=== PATIENT | male | born 1950 | race Caucasian/White ===

== ENCOUNTER 2022-11-26 13:10 | Inpatient (IN) | payer MEDICARE, OTHER ==
[2022-11-26] VITALS (23 sets, daily range): BP systolic 58–132; BP diastolic 21–79
[~2022-11-26] VITALS: Ht 175.3 cm; Wt 74.9 kg
[2022-11-26] MEDS ORDERED: SODIUM CHLORIDE 0.9% 1,000 ML IV ONE (13:30)
[2022-11-26] MEDS ORDERED: MIDAZOLAM HCL 2 MG/2 ML VIAL IV ONE (13:30)
[2022-11-26 13:31] LABS: EOSINOPHILS % 3.8 % (0.0-5.0); HEMATOCRIT. 28.9 % (42.0-52.0); HEMOGLOBIN. 9.9 g/dL (14.0-18.0); LYMPHOCYTES % 12.2 % (20.0-50.0); MEAN CORPUSCULAR HEMOGLOBIN 33.8 pg (28.0-32.0); MEAN CORPUSCULAR VOLUME 98.8 fL (80.0-94.0); MEAN PLATELET VOLUME 6.4 fl (7.4-10.4); MONOCYTES % 11.1 % (2.0-8.0); NEUTROPHILS % 71.9 % (40.0-76.0); PLATELET 219 x1000/uL (130-400); RED BLOOD CELL COUNT 2.93 mill/uL (4.7-6.1)
[2022-11-26 13:39] LABS: CHLORIDE 105 mEq/L (98-107)
[2022-11-26 13:44] LABS: INR 1.5; PARTIAL THROMBOPLASTIN TIME 32.5 sec (23.4-31.0)
[2022-11-26] MEDS ORDERED: AMIODARONE HCL 150 MG in DEXT 5% WATER 97 ML IV ONE (13:45)
[2022-11-26] MEDS ORDERED: AMIODARONE HCL 900 MG in DEXT 5% WATER 500 ML IV ONE (14:30)
[2022-11-26] MEDS ORDERED: POTASSIUM CHLORIDE INJ 40 MEQ in DEXT 5% WATER 250 ML IV ONE (14:45)
[2022-11-26] MEDS ORDERED: KCL 20MEQ/100ML X 2 FOR TOTAL KCL 40MEQ/200ML IV SCH (15:00)
[2022-11-26] MEDS ORDERED: POTASSIUM CHLORIDE 20MEQ TABLET SR PO ONE (15:45)
[2022-11-26] MEDS ORDERED: ACETAMINOPHEN 325MG TABLET PO PRN ×2 (16:45)
[2022-11-26] MEDS ORDERED: NITROGLYCERIN 0.4MG TABLET SL SL PRN (16:45)
[2022-11-26] MEDS ORDERED: CLONIDINE 0.1MG TABLET PO PRN (16:45)
[2022-11-26] MEDS ORDERED: IPRATROPIUM/ALBUTEROL 0.5-3(2.5)MG/3ML NEB NEB PRN (16:45)
[2022-11-26] MEDS ORDERED: MAGNESIUM/ALUMINUM HYDROXIDE/SIMETHICONE 30ML UDC PO PRN (16:45)
[2022-11-26] MEDS ORDERED: METOLAZONE 10MG TABLET PO NR (17:00)
[2022-11-26 17:37] LABS: ETHANOL BLOOD < 10 mg/dL; HDL CHOLESTEROL 75 mg/dL (40-59); LDL CHOLESTEROL 72 mg/dL (5-100); T4 FREE 1.06 ng/dL (0.76-1.46); TOTAL IRON BINDING CAPACITY 380 ug/dL (250-450)
[2022-11-26] MEDS ORDERED: AMIODARONE HCL 150 MG in DEXT 5% WATER 100 ML IV NR (17:45)
[2022-11-26 17:52] LABS: FOLIC ACID (FOLATE) SERUM >20 ng/mL ng/mL (>5.38); VITAMIN B12 SERUM 749 pg/mL (211-911)
[2022-11-26] MEDS ORDERED: WARFARIN SODIUM 5MG TABLET PO NR (18:00)
[2022-11-26] MEDS: ENOXAPARIN 80MG/0.8ML SYR SUBCUT SCH (18:24)
[2022-11-26] MEDS ORDERED: CLOP-31 PO (19:42)
[2022-11-26] MEDS ORDERED: SACU1TAB4 MT (19:42)
[2022-11-26] MEDS ORDERED: ASPI-1406 MT (19:42)
[2022-11-26] MEDS ORDERED: LEVO75TA PO (19:42)
[2022-11-26] MEDS ORDERED: WARF7.5T48 MT (19:42)
[2022-11-26] MEDS ORDERED: TAMS-11 MT (19:42)
[2022-11-26] MEDS ORDERED: CARV3.1242 MT (19:42)
[2022-11-26] MEDS ORDERED: ATOR20TA65 MT (19:42)
[2022-11-26] MEDS ORDERED: FURO-151 PO (19:42)
[2022-11-26 23:55] LABS: CREATINE KINASE MB FRACTION 2.7 ng/mL (0.5-3.6)
[2022-11-26] MEDS: FAMOTIDINE 20MG TABLET PO SCH (23:58)
[2022-11-27] VITALS (87 sets, daily range): BP systolic 86–122; BP diastolic 39–97
[2022-11-27] MEDS ORDERED: KCL 20MEQ/100ML X 2 FOR TOTAL KCL 40MEQ/200ML IV SCH (00:15)
[2022-11-27] MEDS ORDERED: MIRT-111 MT (01:51)
[2022-11-27] MEDS: TRAMADOL 50MG TABLET PO PRN ×3 (02:15→23:58)
[2022-11-27] MEDS: MIRTAZAPINE 15MG TABLET PO PRN ×2 (02:33→23:56)
[2022-11-27 05:50] LABS: BASOPHILS % 1.3 % (0.0-2.0); EOSINOPHILS % 4.9 % (0.0-5.0); HEMATOCRIT. 25.6 % (42.0-52.0); HEMOGLOBIN. 8.9 g/dL (14.0-18.0); LYMPHOCYTES % 22.1 % (20.0-50.0); MEAN CORPUSCULAR HEMOGLOBIN 33.9 pg (28.0-32.0); MEAN CORPUSCULAR VOLUME 97.9 fL (80.0-94.0); MEAN PLATELET VOLUME 6.9 fl (7.4-10.4); MONOCYTES % 12.7 % (2.0-8.0); PLATELET 177 x1000/uL (130-400); RED BLOOD CELL COUNT 2.62 mill/uL (4.7-6.1); RED CELL DISTRIBUTION WIDTH 14.8 % (11.6-14.6)
[2022-11-27 05:56] LABS: INR 1.8; PROTHROMBIN TIME 18.9 sec (9.6-11.0)
[2022-11-27 06:17] LABS: CHLORIDE 108 mEq/L (98-107)
[2022-11-27 06:30] LABS: CREATINE KINASE 86 IU/L (39-308); CREATINE KINASE MB FRACTION 2.7 ng/mL (0.5-3.6); PHOSPHORUS 3.2 mg/dL (2.5-4.9)
[2022-11-27] MEDS: ENOXAPARIN 80MG/0.8ML SYR SUBCUT SCH ×2 (07:21→18:16)
[2022-11-27] MEDS: AMIODARONE HCL 200 MG TABLET PO SCH ×2 (09:23→21:08)
[2022-11-27] MEDS ORDERED: METOPROLOL TARTRATE 5MG/5ML VIAL IV NR (09:30)
[2022-11-27] MEDS: ASPIRIN 81MG EC TABLET PO SCH (09:40)
[2022-11-27] MEDS: FAMOTIDINE 20MG TABLET PO SCH ×2 (09:40→21:08)
[2022-11-27] MEDS: METOPROLOL TARTRATE 25MG TABLET PO SCH ×2 (09:40→21:00)
[2022-11-27] MEDS: CLOPIDOGREL 75MG TABLET PO SCH (09:40)
[2022-11-27] MEDS: SPIRONOLACTONE 25MG TABLET PO SCH (09:40)
[2022-11-27] MEDS ORDERED: AMIODARONE HCL 150 MG in DEXT 5% WATER 100 ML IV SCH (10:00)
[2022-11-27] MEDS ORDERED: AMIODARONE HCL 900 MG in DEXT 5% WATER 482 ML IV PRN (10:00)
[2022-11-27] MEDS ORDERED: METOPROLOL TARTRATE 5MG/5ML VIAL IV PRN (10:15)
[2022-11-27] MEDS ORDERED: NALOXONE HCL 0.4MG/ML VIAL IV PRN (13:00)
[2022-11-27] MEDS ORDERED: ALBUTEROL (0.083%) 2.5MG/3ML NEB HHN PRN (14:30)
[2022-11-27] MEDS ORDERED: FUROSEMIDE 20MG/2ML VIAL IVP NR (16:45)
[2022-11-27] MEDS: ONDANSETRON HCL 4MG/2ML INJ IV PRN (21:07)
[2022-11-27] MEDS ORDERED: MAGNESIUM 1 G PREMIX 100 ML IV NR (22:30)
[2022-11-28] VITALS (76 sets, daily range): BP systolic 88–127; BP diastolic 42–98
[2022-11-28 05:45] LABS: BASOPHILS % 1.1 % (0.0-2.0); EOSINOPHILS % 1.4 % (0.0-5.0); HEMATOCRIT. 29.3 % (42.0-52.0); HEMOGLOBIN. 10.2 g/dL (14.0-18.0); LYMPHOCYTES % 17.7 % (20.0-50.0); MEAN CORPUSCULAR HEMOGLOBIN 34.3 pg (28.0-32.0); MEAN PLATELET VOLUME 7.1 fl (7.4-10.4); MONOCYTES % 15.5 % (2.0-8.0); NEUTROPHILS % 64.3 % (40.0-76.0); PLATELET 195 x1000/uL (130-400); RED BLOOD CELL COUNT 2.96 mill/uL (4.7-6.1); RED CELL DISTRIBUTION WIDTH 14.8 % (11.6-14.6)
[2022-11-28 05:50] LABS: CHLORIDE 102 mEq/L (98-107)
[2022-11-28 05:59] LABS: PHOSPHORUS 4.7 mg/dL (2.5-4.9)
[2022-11-28] MEDS: ENOXAPARIN 80MG/0.8ML SYR SUBCUT SCH (07:04)
[2022-11-28] MEDS: GUAIFENESIN 200MG/10ML SUGAR FREE UDC PO PRN (08:42)
[2022-11-28] MEDS: SPIRONOLACTONE 25MG TABLET PO SCH (09:51)
[2022-11-28] MEDS: FAMOTIDINE 20MG TABLET PO SCH ×2 (09:51→20:49)
[2022-11-28] MEDS: METOPROLOL TARTRATE 25MG TABLET PO SCH ×2 (09:51→21:37)
[2022-11-28] MEDS: CLOPIDOGREL 75MG TABLET PO SCH (09:53)
[2022-11-28] MEDS: ASPIRIN 81MG EC TABLET PO SCH (09:53)
[2022-11-28] MEDS: AMIODARONE HCL 200 MG TABLET PO SCH ×2 (14:05→17:41)
[2022-11-28] MEDS: ONDANSETRON HCL 4MG/2ML INJ IV PRN (14:57)
[2022-11-28] MEDS: TRAMADOL 50MG TABLET PO PRN (17:02)
[2022-11-29] VITALS (7 sets, daily range): BP systolic 90–123; BP diastolic 53–69
[2022-11-29] MEDS ORDERED: ALBUTEROL (0.083%) 2.5MG/3ML NEB HHN PRN
[2022-11-29] MEDS ORDERED: ALBUTEROL (0.083%) 2.5MG/3ML NEB HHN SCH
[2022-11-29] MEDS: GUAIFENESIN 200MG/10ML SUGAR FREE UDC PO PRN (03:35)
[2022-11-29] MEDS: ENOXAPARIN 80MG/0.8ML SYR SUBCUT SCH (05:53)
[2022-11-29 06:42] LABS: INR 2.6; PROTHROMBIN TIME 26.3 sec (9.6-11.0)
[2022-11-29] MEDS: ASPIRIN 81MG EC TABLET PO SCH (08:07)
[2022-11-29] MEDS: FAMOTIDINE 20MG TABLET PO SCH ×2 (08:07→21:56)
[2022-11-29] MEDS: CLOPIDOGREL 75MG TABLET PO SCH (08:08)
[2022-11-29] MEDS: AMIODARONE HCL 200 MG TABLET PO SCH ×3 (08:15→17:20)
[2022-11-29] MEDS: METOPROLOL TARTRATE 25MG TABLET PO SCH ×2 (09:00→21:00)
[2022-11-29] MEDS: LEVOTHYROXINE SODIUM 75MCG TABLET PO SCH (11:37)
[2022-11-29] MEDS: SPIRONOLACTONE 25MG TABLET PO SCH (11:38)
[2022-11-29] MEDS ORDERED: MAGNESIUM HYDROXIDE 400MG/5ML 30ML UDC PO PRN (14:30)
[2022-11-29 16:52] LABS: BASOPHILS % 0.6 % (0.0-2.0); EOSINOPHILS % 3.3 % (0.0-5.0); HEMATOCRIT. 30.4 % (42.0-52.0); HEMOGLOBIN. 10.4 g/dL (14.0-18.0); LYMPHOCYTES % 9.3 % (20.0-50.0); MEAN CORPUSCULAR HEMOGLOBIN 33.8 pg (28.0-32.0); MEAN CORPUSCULAR VOLUME 99.1 fL (80.0-94.0); MEAN PLATELET VOLUME 7.4 fl (7.4-10.4); MONOCYTES % 13.4 % (2.0-8.0); NEUTROPHILS % 73.4 % (40.0-76.0); PLATELET 179 x1000/uL (130-400); RED BLOOD CELL COUNT 3.07 mill/uL (4.7-6.1); RED CELL DISTRIBUTION WIDTH 14.8 % (11.6-14.6)
[2022-11-30 05:03] VITALS: BP 109/63
[2022-11-30] MEDS: LEVOTHYROXINE SODIUM 75MCG TABLET PO SCH (07:02)
[2022-11-30] MEDS: ENOXAPARIN 80MG/0.8ML SYR SUBCUT SCH (07:04)
[2022-11-30 07:24] LABS: HEMATOCRIT. 28.1 % (42.0-52.0); MEAN CORPUSCULAR HEMOGLOBIN 34.7 pg (28.0-32.0); MEAN CORPUSCULAR VOLUME 98.1 fL (80.0-94.0); MEAN PLATELET VOLUME 7.4 fl (7.4-10.4); PLATELET 159 x1000/uL (130-400); RED BLOOD CELL COUNT 2.87 mill/uL (4.7-6.1); RED CELL DISTRIBUTION WIDTH 14.7 % (11.6-14.6)
[2022-11-30 08:00] VITALS: BP 121/58
[2022-11-30] MEDS: FAMOTIDINE 20MG TABLET PO SCH ×2 (08:57→20:45)
[2022-11-30] MEDS: CLOPIDOGREL 75MG TABLET PO SCH (08:59)
[2022-11-30] MEDS: AMIODARONE HCL 200 MG TABLET PO SCH ×2 (08:59→13:03)
[2022-11-30] MEDS: METOPROLOL TARTRATE 25MG TABLET PO SCH ×2 (08:59→20:46)
[2022-11-30] MEDS: ASPIRIN 81MG EC TABLET PO SCH (08:59)
[2022-11-30] MEDS ORDERED: FUROSEMIDE 40MG/4ML VIAL IVP NR (11:30)
[2022-11-30 12:00] VITALS: BP 120/55
[2022-11-30] MEDS ORDERED: ALPRAZOLAM 0.25 MG TABLET PO PRN (12:30)
[2022-11-30 14:54] LABS: PLATELET ESTIMATE NORMAL
[2022-11-30 16:00] VITALS: BP 112/57
[2022-11-30 20:00] VITALS: BP 129/85
[2022-11-30] MEDS: DOCUSATE SODIUM 100MG CAPSULE PO PRN (20:46)
[2022-11-30] MEDS: MIRTAZAPINE 15MG TABLET PO PRN (21:11)
[2022-12-01] VITALS (8 sets, daily range): BP systolic 105–131; BP diastolic 52–67
[2022-12-01] MEDS: ENOXAPARIN 80MG/0.8ML SYR SUBCUT SCH (06:00)
[2022-12-01] MEDS: LEVOTHYROXINE SODIUM 75MCG TABLET PO SCH (07:06)
[2022-12-01 07:07] LABS: HEMATOCRIT. 27.9 % (42.0-52.0); HEMOGLOBIN. 9.6 g/dL (14.0-18.0); MEAN CORPUSCULAR HEMOGLOBIN 34.4 pg (28.0-32.0); MEAN CORPUSCULAR VOLUME 99.5 fL (80.0-94.0); MEAN PLATELET VOLUME 7.4 fl (7.4-10.4); PLATELET 149 x1000/uL (130-400); RED BLOOD CELL COUNT 2.81 mill/uL (4.7-6.1)
[2022-12-01] MEDS ORDERED: FUROSEMIDE 40MG/4ML VIAL IVP SCH (09:00)
[2022-12-01] MEDS: METOPROLOL TARTRATE 25MG TABLET PO SCH ×2 (09:00→21:00)
[2022-12-01] MEDS: FAMOTIDINE 20MG TABLET PO SCH (09:08)
[2022-12-01] MEDS: CLOPIDOGREL 75MG TABLET PO SCH (09:08)
[2022-12-01] MEDS: ASPIRIN 81MG EC TABLET PO SCH (09:08)
[2022-12-01] MEDS: AMIODARONE HCL 200 MG TABLET PO SCH ×3 (09:09→17:22)
[2022-12-01] MEDS ORDERED: ACETYLCYSTEINE 200MG/ML 20% VIAL 4ML PO SCH (09:30)
[2022-12-01] MEDS ORDERED: IODIXANOL 320MG/ML 100 ML BOTTLE IV ONE (10:42)
[2022-12-01] MEDS ORDERED: DIPHENHYDRAMINE 50MG/ML VIAL ONE (10:43)
[2022-12-01] MEDS ORDERED: HEPARIN 1000 UNITS/ML 10ML ONE (10:43)
[2022-12-01] MEDS ORDERED: VERAPAMIL HCL 2.5 MG/1 ML 2ML VIAL IV ONE (10:43)
[2022-12-01] MEDS ORDERED: LIDOCAINE HCL/PF 1% 10 MG/ML 5ML VIAL ONE (10:43)
[2022-12-01] MEDS ORDERED: FENTANYL CITRATE/PF 50MCG/ML 2ML VIAL ONE (10:50)
[2022-12-01] MEDS ORDERED: MIDAZOLAM HCL 2 MG/2 ML VIAL ONE (10:50)
[2022-12-01 11:02] LABS: PLATELET ESTIMATE NORMAL
[2022-12-01 12:18] LABS: PHOSPHORUS 3.6 mg/dL (2.5-4.9)
[2022-12-01] MEDS ORDERED: ACETAMINOPHEN 325MG TABLET PO PRN (12:45)
[2022-12-01] MEDS ORDERED: ATROPINE SULFATE 1MG/10ML SYR IV PRN (12:45)
[2022-12-01] MEDS ORDERED: NITROGLYCERIN 50MCG/ML 10ML VIAL (CATH LAB) IV ONE (16:05)
[2022-12-01] MEDS ORDERED: NICARDIPINE 100MCG/ML 10ML VIAL (CATH LAB) IV ONE (16:05)
[2022-12-01 18:13] LABS: INR 1.4; PROTHROMBIN TIME 14.4 sec (9.6-11.0)
[2022-12-01] MEDS: DOCUSATE SODIUM 100MG CAPSULE PO PRN (20:47)
[2022-12-01] MEDS: ACETYLCYSTEINE 200MG/ML 20% VIAL 10ML PO SCH (21:49)
[2022-12-01] MEDS: MIRTAZAPINE 15MG TABLET PO PRN (21:49)
[2022-12-02 03:42] VITALS: BP 120/57
[2022-12-02 05:59] LABS: INR 1.3
[2022-12-02 06:16] LABS: HEMATOCRIT. 28.6 % (42.0-52.0); HEMOGLOBIN. 9.6 g/dL (14.0-18.0); MEAN CORPUSCULAR HEMOGLOBIN 33.7 pg (28.0-32.0); MEAN CORPUSCULAR VOLUME 99.8 fL (80.0-94.0); MEAN PLATELET VOLUME 7.7 fl (7.4-10.4); PLATELET 149 x1000/uL (130-400); RED BLOOD CELL COUNT 2.87 mill/uL (4.7-6.1); RED CELL DISTRIBUTION WIDTH 14.8 % (11.6-14.6)
[2022-12-02] MEDS: LEVOTHYROXINE SODIUM 75MCG TABLET PO SCH (06:16)
[2022-12-02 08:00] VITALS: BP 120/58
[2022-12-02] MEDS ORDERED: FAMOTIDINE 20MG TABLET PO SCH (09:00)
[2022-12-02] MEDS: ASPIRIN 81MG EC TABLET PO SCH (09:09)
[2022-12-02] MEDS: CLOPIDOGREL 75MG TABLET PO SCH (09:09)
[2022-12-02] MEDS: METOPROLOL TARTRATE 25MG TABLET PO SCH (09:09)
[2022-12-02] MEDS: AMIODARONE HCL 200 MG TABLET PO SCH ×2 (09:09→13:24)
[2022-12-02 09:25] LABS: TOTAL IRON BINDING CAPACITY 343 ug/dL (250-450)
[2022-12-02 09:57] LABS: VITAMIN B12 SERUM 1085 pg/mL (211-911)
[2022-12-02] MEDS ORDERED: ENOXAPARIN 80MG/0.8ML SYR SUBCUT SCH (10:11)
[2022-12-02] MEDS ORDERED: LOV80 SUBCUT (10:34)
[2022-12-02] MEDS ORDERED: AMIO400T11 PO (10:55)
[2022-12-02 11:38] VITALS: BP 120/58
[2022-12-02 12:00] VITALS: BP 126/49
[2022-12-02 13:06] LABS: FERRITIN 69 ng/mL (22-322)
[2022-12-02] MEDS: ACETYLCYSTEINE 200MG/ML 20% VIAL 10ML PO SCH (13:25)
[2022-12-02] MEDS ORDERED: WARFARIN SODIUM 5MG TABLET PO SCH (18:00)
[2022-12-02 19:49] LABS: PLATELET ESTIMATE NORMAL
== END 2022-12-02 13:50 | disposition home or self-care (01) | DRG 280 ==
LOC: ER 14:32 → CVICU 16:19 → EDBEDREQ 16:29 → EDBEDREQTM 16:29 → ENRESERV 16:40 → SUPCPDRO 16:43 → 3WST 11-28 21:27
PROVIDERS: ADMIT Internal Medicine; ATTEND Internal Medicine
PROC: 5A2204Z Restoration of Cardiac Rhythm, Single (ICD-10-PCS; 2022-11-26)
PROC: B211YZZ Fluoroscopy of Multiple Coronary Arteries using Other Contrast (ICD-10-PCS; principal; 2022-12-01)
DX: I47.1 Supraventricular tachycardia (principal); I21.4 Non-ST elevation (NSTEMI) myocardial infarction; I50.23 Acute on chronic systolic (congestive) heart failure; N17.0 Acute kidney failure with tubular necrosis; I42.9 Cardiomyopathy, unspecified; I47.20 Ventricular tachycardia, unspecified; I48.21 Permanent atrial fibrillation; E87.6 Hypokalemia; I44.7 Left bundle-branch block, unspecified; N40.0 Benign prostatic hyperplasia without lower urinary tract symptoms; D63.1 Anemia in chronic kidney disease; D89.2 Hypergammaglobulinemia, unspecified; I25.10 Atherosclerotic heart disease of native coronary artery without angina pectoris; I35.9 Nonrheumatic aortic valve disorder, unspecified; N18.30 Chronic kidney disease, stage 3 unspecified; E05.90 Thyrotoxicosis, unspecified without thyrotoxic crisis or storm; R79.1 Abnormal coagulation profile; T45.515A Adverse effect of anticoagulants, initial encounter; Z79.01 Long term (current) use of anticoagulants; Z79.82 Long term (current) use of aspirin; Z95.810 Presence of automatic (implantable) cardiac defibrillator; Z95.2 Presence of prosthetic heart valve; Z95.1 Presence of aortocoronary bypass graft; Z95.5 Presence of coronary angioplasty implant and graft; Z79.02 Long term (current) use of antithrombotics/antiplatelets
CPT/HCPCS: 36415; 71045; 76770; 80048; 80053; 80061; 80320; 82550; 82553; 82607; 82728; 82746; 82962; 83036; 83540; 83550; 83605; 83735; 83880; 83970; 84100; 84145; 84439; 84443; 84484; 85025; 93005; 93306; 93454; 93970; 94640; 99291; C1769; C1887; C1893; J0282; J1200; J1644; J1650; J1940; J2250; J2405; J3010; J3475; J3480; J3490; J7030; J7060; J7608; Q9967; G0480

== ENCOUNTER 2023-06-03 20:19 | Emergency (ER) | payer MEDICARE, OTHER ==
[~2023-06-03] VITALS: Ht 175.3 cm; Wt 65.0 kg
[~2023-06-03 20:19] MED LIST: AMIO400T11 PO; ASPI-1406 MT; ATOR20TA65 MT; CARV3.1242 MT; CLOP-31 PO; FURO-151 PO; LEVO75TA PO; LOV80 SUBCUT; MIRT-111 MT; SACU1TAB4 MT; TAMS-11 MT; WARF7.5T48 MT
[2023-06-03 20:22] VITALS: TEMP 97.6; O2SAT 100
[2023-06-03] MEDS ORDERED: KETOROLAC 30MG/ML VIAL IM ONE (21:15)
[2023-06-03 22:00] VITALS: BP 104/58; PULSE 93; RESP 16
== END 2023-06-03 23:33 | disposition left against medical advice (07) ==
LOC: ER 20:19
DX: S00.83XA Contusion of other part of head, initial encounter (principal); S10.83XA Contusion of other specified part of neck, initial encounter; S50.12XA Contusion of left forearm, initial encounter; S70.02XA Contusion of left hip, initial encounter; I50.9 Heart failure, unspecified; Z98.890 Other specified postprocedural states; W19.XXXA Unspecified fall, initial encounter; Y93.89 Activity, other specified; Y92.89 Other specified places as the place of occurrence of the external cause; Y99.8 Other external cause status
CPT/HCPCS: 99283; 96372; J1885